=== PATIENT | female | born 1935 | race Caucasian/White ===

== ENCOUNTER 2017-01-22 19:21 | Emergency (ER) | payer MEDICARE ==
[~2017-01-22] VITALS: Ht 167.6 cm; Wt 105.0 kg
[2017-01-22 20:12] LABS: HEMATOCRIT 39.6 % (37.0-47.0); HEMOGLOBIN 12.9 g/dl (12.0-16.0); IMMATURE GRANULOCYTES 0.5 % (0.0-1.0); MEAN CORPUSCULAR HGB CONC 32.6 g/L CALC (32.0-36.0); NEUT# 8.31 thou/uL (2.00-7.15); RED BLOOD COUNT 4.45 mill/uL (4.20-5.60); RED CELL DISTRI WIDTH 14.9 % (11.5-15.5)
[2017-01-22 20:26] LABS: ALBUMIN 4.3 g/dL (3.2-5.0); BILIRUBIN, TOTAL 0.4 mg/dL (0.0-1.4); CALCIUM 9.8 mg/dL (8.4-10.2); CREATININE 1.6 mg/dL (0.5-1.0); TOTAL PROTEIN 7.9 g/dL (6.3-8.2)
[2017-01-22 20:32] LABS: POTASSIUM 5.2 mmol/l (3.5-5.1)
[2017-01-22 21:31] LABS: MYOGLOBIN 124 ng/mL (0 - 62)
[2017-01-22] MEDS ORDERED: LANTUS100 UNIT/M SC (22:59)
[2017-01-22] MEDS ORDERED: LEVOTHYROXIN50 MC1 PO (23:00)
[2017-01-22] MEDS ORDERED: ATORVASTATIN CA20 MG PO (23:02)
[2017-01-22] MEDS ORDERED: QUINAPRIL HCL40 MG PO (23:03)
[2017-01-22] MEDS ORDERED: CLOPIDOGREL75 MG PO (23:03)
[2017-01-22] MEDS ORDERED: AMLODIPINE BESYL5 MG PO (23:04)
[2017-01-22] MEDS ORDERED: ALLOPURINOL300 MG PO (23:04)
[2017-01-22 23:14] VITALS: BP 180/75
== END 2017-01-22 23:14 | disposition home or self-care (01) ==
LOC: ED 19:21
PROVIDERS: Emergency Medicine
DX: E11.65 Type 2 diabetes mellitus with hyperglycemia (principal); I10 Essential (primary) hypertension; Z79.4 Long term (current) use of insulin; R94.31 Abnormal electrocardiogram [ECG] [EKG]

== ENCOUNTER 2017-08-30 10:11 | Emergency (ER) | payer MEDICARE ==
[~2017-08-30] VITALS: Ht 167.6 cm; Wt 102.0 kg
[~2017-08-30 10:11] MED LIST: ALLOPURINOL300 MG PO; AMLODIPINE BESYL5 MG PO; ATORVASTATIN CA20 MG PO; CLOPIDOGREL75 MG PO; LANTUS100 UNIT/M SC; LEVOTHYROXIN50 MC1 PO; QUINAPRIL HCL40 MG PO
[2017-08-30 11:31] LABS: HEMATOCRIT 38.4 % (37.0-47.0); IMMATURE GRANULOCYTES 0.3 % (0.0-1.0); MEAN CELL VOLUME 90.8 fL CALC (80.0-100.0); MEAN CORPUSCULAR HGB 28.4 pG CALC (26.0-32.0); MEAN CORPUSCULAR HGB CONC 31.3 g/L CALC (32.0-36.0); NEUT# 4.8 thou/uL (2.00-7.15); RED BLOOD COUNT 4.23 mill/uL (4.20-5.60); RED CELL DISTRI WIDTH 15.5 % (11.5-15.5)
[2017-08-30 11:53] LABS: ALBUMIN 3.5 g/dL (3.2-5.0); ALKALINE PHOSPHATASE 97 u/l (38-126); AMYLASE 48 u/l (30-110); ANION GAP 15 (6-22 (CALC)); BILIRUBIN, TOTAL 0.4 mg/dL (0.0-1.4); BUN 37 mg/dL (8-23); BUN/CREATININE RATIO 19 (12-20 (CALC)); CARBON DIOXIDE 25 mmol/l (22-30); CHLORIDE 109 mmol/l (95-108); CREATININE 1.9 mg/dL (0.5-1.0); GFR 25 ML/MIN (>=60 (CALC)); GFR FOR AFR.AMER. 31 ML/MIN (>=60 (CALC)); LIPASE 61 u/l (23-300); POTASSIUM 4.4 mmol/l (3.5-5.1); SGOT/AST 20 u/l (9-36); SGPT/ALT 20 u/l (11-66); TOTAL PROTEIN 6.6 g/dL (6.3-8.2)
[2017-08-30 11:56] LABS: SODIUM 145 mmol/l (137-146)
[2017-08-30 12:05] LABS: MYOGLOBIN 122 ng/mL (0 - 62)
[2017-08-30] MEDS ORDERED: LOMOTIL2.5 MG PO (13:22)
[2017-08-30] MEDS ORDERED: ZOFRAN ODT4 MG PO (13:22)
[2017-08-30 13:27] VITALS: BP 155/68
== END 2017-08-30 14:50 | disposition home or self-care (01) ==
LOC: ED 10:11
PROVIDERS: Emergency Medicine
DX: K52.9 Noninfective gastroenteritis and colitis, unspecified (principal); K80.80 Other cholelithiasis without obstruction; E11.9 Type 2 diabetes mellitus without complications; I10 Essential (primary) hypertension

== ENCOUNTER 2020-05-01 14:17 | Inpatient (IN) | payer MEDICARE ==
[~2020-05-01] VITALS: Ht 167.6 cm; Wt 84.4 kg
[~2020-05-01 14:17] MED LIST changes: +LOMOTIL2.5 MG PO; +ZOFRAN ODT4 MG PO
--- NOTE | 2020-05-01 14:17 | NUR ---
HELPED WITH GETTING FAMILY OUT OF VEHICLE TO WHEELCHAIR. PATIENT UNABLE TO LIFT RIGHT LEG AND DRAGS IT TRYING TO AMBULATE. BROUGHT PATIENT TO ROOM FOR BEDSIDE TRIAGE. PATIENT HAS DRIFT TO UPPER AND LOWER RIGHT EXTREMITIES. PATIENT IS MILDLY ASPHASIC PRESSURED SPEECH AND HAS RIGHT UPPER EXTREMITY ATAXIA. PATIENT DENIES ANY PAIN OR RECENT FALL AT THIS TIME. PATIENTS FAMILY STATES LWK 1 WEEK PRIOR FAMILY UNKNOWN IF SUDDEN ONSET OR NOT. MD AT BEDSIDE
[2020-05-01 15:04] LABS: IMMATURE GRANULOCYTES 0.7 % (0.0-5.0); MEAN CORPUSCULAR HGB CONC 28.9 g/dL CAL (32.0-36.0); NEUT# 10.49 thou/uL (2.00-7.15); RED BLOOD COUNT 3.31 mill/uL (4.20-5.60); RED CELL DISTRI WIDTH 17.9 % (11.5-15.5)
[2020-05-01 15:06] LABS: HEMATOCRIT 26.3 % (37.0-47.0); HEMOGLOBIN 7.6 g/dl (12.0-16.0); MEAN CELL VOLUME 79.5 fL CALC (80.0-100.0)
--- NOTE | 2020-05-01 15:15 | NUR ---
PATIENT RESTING AWAITING LAB AND RADIOLOGY STUDIES PATIENT DENIES ANY PAIN AT THIS TIME
[2020-05-01 15:17] LABS: ALBUMIN 3.4 g/dL (3.2-5.0); ALKALINE PHOSPHATASE 78 u/l (38-126); AMYLASE 55 u/l (30-110); BILIRUBIN, TOTAL 0.3 mg/dL (0.0-1.4); BUN 48 mg/dL (8-23); BUN/CREATININE RATIO 17 (12-20 (CALC)); CARBON DIOXIDE 29 mmol/l (22-30); CHLORIDE 98 mmol/l (95-108); CREATININE 2.8 mg/dL (0.5-1.0); GFR 16 ML/MIN (>=60 (CALC)); GFR FOR AFR.AMER. 19 ML/MIN (>=60 (CALC)); LIPASE 69 u/l (23-300); MAGNESIUM 1.1 mg/dL (1.6-2.3); POTASSIUM 3.9 mmol/l (3.5-5.1); SGOT/AST 18 u/l (9-36)
[2020-05-01 15:20] LABS: ANION GAP 12 (6-22 (CALC)); SODIUM 135 mmol/l (137-146)
[2020-05-01 15:29] LABS: ACT PARTIAL THROMBO TIME 20.2 SECONDS (20.0-32.5); PROTHROMBIN TIME 10.4 SECONDS (9.0-12.5)
[2020-05-01] MEDS ORDERED: CHLORTHALID50 MG PO (15:40)
[2020-05-01] MEDS ORDERED: ASPIRIN81 MG PO (15:40)
[2020-05-01] MEDS ORDERED: PROTONIX40 M2 PO (15:42)
[2020-05-01] MEDS ORDERED: BASAGLAR K100 UNIT/M SC (15:43)
[2020-05-01 15:47] LABS: TSH, 3RD GENERATION 2.31 uIU/mL (0.47 - 4.68)
--- NOTE | 2020-05-01 16:17 | NUR ---
PATIENT RESTING AWAITING LAB AND RADIOLOGY STUDIES. PATIENT DENIES ANY PAIN AT THIS TIME
--- NOTE | 2020-05-01 16:33 | NUR ---
SPEECH THERAPY AT BEDSIDE AND SWALLOW EVAL COMPLETED. PATIENT PASSED SWALLOW EVAL OK TO FEED REGULAR DIET PATIENT JUST PREFERS SOFT
--- NOTE | 2020-05-01 16:53 | NUR ---
Speech therapy screen completed in ED. The pt presented with distorted speech, reduced cognitive status, impaired auditory comprehension, and decreased oral intake over the last week. Lissette tolerated cup sips of thin liquid via straw without signs or symptoms of aspiration or penetration. She presented with a strong voluntary cough with no reflexive cough observed. Diet recommendation based on screen includes thin liquids and a regular diet, however the pt stated she prefers mechanical soft foods and soup. The pt is able to tolerate a regular diet, but meals should be presented at a preferred consistency for comfort. Upon admission complete cognitive, language, and dysphagia evaluation. AMPAC score at time of ST screen- 12.
--- NOTE | 2020-05-01 17:00 | NUR ---
ASSISTED MD WITH RECTAL EXAM. POSITIVE FOR OCCULT BLOOD , LARGE AMOUNT SOFT BLACK STOOL IN RECTUM. OBTAINED CLOUDY STRAW COLORED URINE BY STRAIGHT CATH
[2020-05-01 17:09] LABS: URINE BILIRUBIN - DIPSTICK NEGATIVE (NEGATIVE); URINE BLOOD DIPSTICK TRACE-LYSED (NEGATIVE); URINE COLOR YELLOW; URINE GLUCOSE - DIPSTICK NEGATIVE (NEGATIVE); URINE KETONE NEGATIVE (NEGATIVE); URINE NITRITE - DIPSTICK NEGATIVE (Negative); URINE SPECIFIC GRAVITY 1.025; URINE UROBILINOGEN - DIPSTICK 0.2 E.U./dL (0.2)
[2020-05-01 17:12] LABS: URINE LEUK ESTERASE TRACE (NEGATIVE); URINE PROTEIN - DIPSTICK Trace mg/dL (NEG-TRACE)
[2020-05-01] MEDS ORDERED: (None)1 % OU (17:25)
--- NOTE | 2020-05-01 17:55 | NUR ---
BLOOD PRODUCT NOT READY AT THIS TIME. ADVISED ICU NURSE OF SAME. EDP AWARE
--- NOTE | 2020-05-01 18:05 | NUR ---
TRANSPORTED TO ICU VIA STRETCHER IN [facility]
--- NOTE | 2020-05-01 18:11 | NUR ---
PT ARRIVED TO ICU 2, BLOOD HAS BEEN ORDERED BUT IS NOT READY AT THIS TIME
--- NOTE | 2020-05-01 19:45 | NUR ---
RESTING IN BED ON ROUNDS. AWAKE, ALERT, ORIENTED X3. SPEECH IS SLIGHTLY HESITANT, ALTHOUGH ANSWERS QUESTIONS APPROPRIATELY. FACE SYMMETRICAL,TONGUE MIDLINE ON EXTENSION. FOLLOWS COMMANDS, MOVES ALL EXTREMITIES. HG/PP EQUAL WITH MODERATE STRENGTH. RESP NON-LABORED. LUNGS CLEAR. IV IN LAC, SITE BENIGN, NS INFUSING AT 75 ML/HR. SHIFT ASSESSMENT COMPLETED. DISCUSSED PLAN OF CARE. EXPLAINED LOW HG AND NEED FOR BLOOD TRANSFUSION. PATIENT VERBALIZES UNDERSTANDING OF TEACHING. CALL RIVERO IN REACH.
[2020-05-01 20:40] VITALS: BP 92/48
--- NOTE | 2020-05-01 20:45 | NUR ---
EXPLAINED PROCESS FOR BLOOD TRANSFUSION. CONSENT FOR TRANSFUSION OBTAINED.
--- NOTE | 2020-05-01 21:31 | NUR ---
NS INFUSING AT KVO FOR BLOOD TRANSFUSION. PRE-TRANSFUSION VSS. AFEBRILE. REINFORCED S/S OF TRANSFUSION REACTION. PRBC'S STARTED. SEE TAR FOR FURTHER INFORMATION.
[2020-05-01 21:45] VITALS: BP 124/55
--- NOTE | 2020-05-01 21:45 | NUR ---
NO S/S OF TRANSFUSION REACTION. VSS.
[2020-05-01 22:30] VITALS: BP 127/60
--- NOTE | 2020-05-01 22:30 | NUR ---
TOLERATING TRANSFUSION WELL. VSS.
[2020-05-01 23:30] VITALS: BP 139/60
[2020-05-02] VITALS (11 sets, daily range): BP systolic 113–164; BP diastolic 53–85
--- NOTE | 2020-05-02 | NUR ---
PATIENT RESTING WITH EYES CLOSED. PRBC'S INFUSING WITHOUT INCIDENT.
--- NOTE | 2020-05-02 00:15 | NUR ---
PRBC'S INFUSED WITHOUT INCIDENT. NS RESUMED AT 75 ML/HR.
--- NOTE | 2020-05-02 02:00 | NUR ---
RESTING WITH EYES CLOSED. AWAKENS EASILY TO NAME. NO CHANGES TO RPEORT.
--- NOTE | 2020-05-02 04:00 | NUR ---
ASLEEP. RESP NON-LABORED. VSS.
[2020-05-02 05:28] LABS: HEMATOCRIT 30.1 % (37.0-47.0); HEMOGLOBIN 9.1 g/dl (12.0-16.0); IMMATURE GRANULOCYTES 0.4 % (0.0-5.0); MEAN CELL VOLUME 80.5 fL CALC (80.0-100.0); MEAN CORPUSCULAR HGB 24.3 pG CALC (26.0-32.0); MEAN CORPUSCULAR HGB CONC 30.2 g/dL CAL (32.0-36.0); NEUT# 8.48 thou/uL (2.00-7.15); RED BLOOD COUNT 3.74 mill/uL (4.20-5.60); RED CELL DISTRI WIDTH 17.2 % (11.5-15.5)
[2020-05-02 05:55] LABS: ALBUMIN 2.9 g/dL (3.2-5.0); CREATININE 2.5 mg/dL (0.5-1.0); TOTAL PROTEIN 6.2 g/dL (6.3-8.2)
[2020-05-02 05:58] LABS: BILIRUBIN, TOTAL 0.6 mg/dL (0.0-1.4)
--- NOTE | 2020-05-02 06:00 | NUR ---
AWAKENS TO NAME. NO NEURO CHANGES TO REPORT. IV INFUSING WITHOUT INCIDENT.
--- NOTE | 2020-05-02 08:07 | NUR ---
Patient would benefit from PT/OT/ST consults
--- NOTE | 2020-05-02 08:30 | NUR ---
DR. RODGERS IN TO SEE PT; PLAN OF CARE DISCUSSED
--- NOTE | 2020-05-02 11:31 | NUR ---
PHYSICAL THERAPY IN WITH PT; PT ASSISTED TO RECLINER; FAMILY IN TO SEE PT; WILL CONTINUE TO MONITOR
--- NOTE | 2020-05-02 11:48 | NUR ---
SPEECH THERAPIST IN TO SEE PT
--- NOTE | 2020-05-02 13:01 | NUR ---
Vale. ATTEMPTED TO EVALUATE PATIENT AT 11:45 A.M., HOWEVER, WAS BEING EVALUATED BY Darron.
--- NOTE | 2020-05-02 14:32 | NUR ---
JENNIFER STARTED AT THIS TIME; DISCUSSED POC WITH PT. SHE IS AGREEABLE TO PLAN.
--- NOTE | 2020-05-02 14:57 | NUR ---
OT IN WITH PT.
--- NOTE | 2020-05-02 18:24 | NUR ---
PT ASSISTED TO BSC; VOIDS WITHOUT DIFFICULTY; NO COMPLAINTS VOICED; CALL RIVERO WITHIN REACH; WILL CONTINUE TO MONITOR.
--- NOTE | 2020-05-02 19:00 | NUR ---
RECEIVED REPORT FROM AM NURSE. PATIENT CURRENTLY IN CHAIR. PATIENT WITH NO SIGNS OF PAIN OR DISCOMFORT. PATIENT VITALS STABLE. WILL CONTINUE TO MONITOR.
--- NOTE | 2020-05-02 20:00 | NUR ---
patient rounded on. assessment completed. patient alert and oriented to person and place only. patient sitting in chair. no complaints of pain. patient with fluids infusing. patient with peripheral iv. vitals stable. patient encouraged to drink bowel prep. no bm yet. afebrile. will continue to monitor.
--- NOTE | 2020-05-02 20:45 | NUR ---
verbal consent obtained from daughter cal aguilar via telephone. send nurse witness. all questions answered. will continue to monitor.
--- NOTE | 2020-05-02 22:00 | NUR ---
PATIENT ROUNDED ON. PATIENT WITH NO SIGNS OF PAIN OR DISCOMFORT. VITAL SIGNS STABLE. PATIENT ASSISTED TO BEDSIDE COMMODE. PATIENT WITH NO BM. WILL CONTINUE TO MONITOR.
[2020-05-03] VITALS (9 sets, daily range): BP systolic 142–191; BP diastolic 57–90
--- NOTE | 2020-05-03 | NUR ---
PATIENT RESTING IN BED. PATIENT WITH NO COMPLAINTS OF PAIN OR DISCOMFORT. PATIENT WITH NO SIGNS OF DISTRESS. PATIENT AMBULATED TO BESIDE COMMODE. WILL CONTINUE TO MONITOR.
--- NOTE | 2020-05-03 02:00 | NUR ---
PATIENT INCONTINENT OF BOWEL MOVEMENT. STOOL LIQUID WITH SOME FORMED STOOL AND DARK IN COLOR. PATIENT WITH NO SIGNS OF DISTRESS. PATIENT ASSISTED TO BSC. WILL CONTINUE TO MONITOR.
--- NOTE | 2020-05-03 04:00 | NUR ---
PATIENT HAD ANOTHER EPISODE OF INCONTINENT STOOL. STOOL STILL LIQUID AND DARK. PATIENT WITH NO COMPLAINTS. PATIENT ASSISTED TO BSC. PATIENT CLEANED AND WASHED UP. LINENS CHANGED. VITALS STABLE. WILL CONTINUE TO MONITOR.
[2020-05-03 06:24] LABS: HEMATOCRIT 30.1 % (37.0-47.0); HEMOGLOBIN 9.1 g/dl (12.0-16.0); IMMATURE GRANULOCYTES 0.6 % (0.0-5.0); MEAN CELL VOLUME 81.1 fL CALC (80.0-100.0); MEAN CORPUSCULAR HGB 24.5 pG CALC (26.0-32.0); MEAN CORPUSCULAR HGB CONC 30.2 g/dL CAL (32.0-36.0); NEUT# 8.12 thou/uL (2.00-7.15); RED BLOOD COUNT 3.71 mill/uL (4.20-5.60); RED CELL DISTRI WIDTH 17.8 % (11.5-15.5)
[2020-05-03 06:41] LABS: ALBUMIN 2.9 g/dL (3.2-5.0); BILIRUBIN, TOTAL 0.4 mg/dL (0.0-1.4); CREATININE 2.3 mg/dL (0.5-1.0); POTASSIUM 4.5 mmol/l (3.5-5.1)
--- NOTE | 2020-05-03 07:00 | NUR ---
PT SLEEPING IN BED. NO DISTRESS NOTED. RESP EVEN AND UNLABORED. CONTINUE TO MONITOR.
--- NOTE | 2020-05-03 08:39 | NUR ---
PT LAYING IN BED. A&O TO SELF, PT REPOTS TO BE AT "HOME" AND YEAR STATED TO BE "1989". REORIENTED PT TO PLACE AND CURRENT TIME. BILATERAL SCD'S IN PLACE. PT DENIES ANY PAIN AT THIS TIME. PALE APPEARANCE NOTED. PT REPORTS WEAKNESS. SONYA CARE PROVIDED. BILATERAL DRESSINGS IN PLACE FOR WOUNDS, SEE CHART FOR PHOTO. ASSESSMENT COMPLETED. DISCUSSED POC, REINFORCEMENT NEEDED. CALL LIGHT IN REACH. CONTINUE TO MONITOR.
--- NOTE | 2020-05-03 10:24 | NUR ---
SONYA CARE PROVIDED WITH THE ASSISTANCE OF SHIRA HAWLEY.
--- NOTE | 2020-05-03 11:42 | NUR ---
SPEECH THERAPY AT BEDSIDE
--- NOTE | 2020-05-03 11:55 | NUR ---
BEDSIDE SWALLOW EVAL TO BE COMPLETED BY SPEECH THERAPY PER DR RODGERS
--- NOTE | 2020-05-03 12:25 | NUR ---
Cem GERARD AT BEDSIDE DISCUSSING POC
--- NOTE | 2020-05-03 12:59 | NUR ---
PT EATING LUNCH WITH DAUGHTER AT BEDSIDE. PT C/O OF BACK PAIN 01/11. CALL LIGHT IN REACH. CONTINUE TO MONITOR.
--- NOTE | 2020-05-03 13:13 | NUR ---
Cogntive-Communication therapy was provided earlier today. Patient was noted with soft voice. Family reports that her speech is the same as it was before, and they think it sounds softer due to patient's weakness. Family reports recent increased confusion. Patient was oriented to herself and location. Decreased orientation to temporal concepts, however when DYER AND WASHER cued her by saying yesterday was , she was able to state today is Wednesday and when DYER AND WASHER told her today's date is , patient was able to say tomorrow is . She was able to count to 10 forward and backward. She was able to count backwards from 20 - 1, but she was unable to skip count backwards from 20. She was able to skip count from 2 -20 by 2's forward. DYER AND WASHER provided education on memory startegies, and the above discussed working memory/attention tasks were provided during intervals of delayed recall memory tasks. Patient was able to accurately recall 3 novel unrelated words during 2 opportunities during delayed recall memory task, and she was able to accurately recall 2 out of 3 words 2 times and 1 out of 3 words 2 times. She was able to demonstrate ability to accurately perform digit reversal memory task for 2 digits, but was unable to perform digit reversal task for a series of 3 digits. [facility] Applied Cognitive approximately 7 - 8
--- NOTE | 2020-05-03 13:44 | NUR ---
PT SEEN AND EVALUATED BY SPEECH THERAPY. NO DIETARY RESTRICTIONS OR RECOMMENDATIONS AT THIS TIME.
--- NOTE | 2020-05-03 14:18 | NUR ---
ASSISTED PT TO BSC WITH THE ASSISTANCE OF SHIRA HAWLEY. PERICARE PROVIDED. DAUGHTER AT BEDSIDE. CONTINUE TO MONITOR.
--- NOTE | 2020-05-03 14:54 | NUR ---
DR RODGESR NOTIFIED OF PTS HIGH BP, 180/76. ORDERS REC FOR NORVASC 5 MG PO DAILY WITH FIRST DOSE NOW AND HYDRALAZINE 10 MG IV Q6 FOR SYSTOLIC GREATER THAN 170. ORDERS WRITTEN AND FAXED TO PHARMACY.
--- NOTE | 2020-05-03 15:06 | NUR ---
PT ARRIVED TO [facility] ROOM 269 VIA BED ACCOMPAINED BY JUAN, RN AND KERLINERN. BEDSIDE REPORT RECIEVED. INTRODUCED SELF TO PT AND DISCUSSED POC. PT IS A/O X2. ASSESSMENT AND VITALS OBTAINED. BP 161/57, HR 81, O2 95% ON ROOM AIR. RESPIRATIONS ARE EVEN AND UNLABORED WITH NO SIGNS OF DISTRESS NOTED. LUNG SOUNDS ARE CLEAR. HEART RHYTHM IS NORMAL WITH TELE IN PLACE. BOWEL SOUNDS ARE ACTIVE IN ALL QUADRANTS, LAST REPORTED BM 05/03/2020. RADIAL AND PEDAL PULSES ARE STRONG WITH NORMAL CAPILLARY REFILL. #20G IN LAC RUNNING WITH IVF PER ORDER, SITE APPEARS HEALTHY AND PATENT. PT PRESENT WITH VERY SMALL WOUND ON SACTRUM,OPEN TO AIR. WOUNDS PRESENT ON BILATERAL LEGS, DRESSINGS REMAINS CDI AT THIS TIME. PT DENIES ANY PAIN OR DISCOMFORTS AT THIS TIME. ALL SAFETY PRECAUTIONS ARE IN PLACE WITH CALL LIGHT IN REACH WITH BED ALARM ACTIVATED
--- NOTE | 2020-05-03 15:20 | NUR ---
BEDSIDE REPORT GIVEN TO SANJANA BARRAZA TO RESUME CARE. PT STABALZIED IN ROOM.
--- NOTE | 2020-05-03 15:33 | NUR ---
ORDER CLARIFICATION WRITEN FOR LABETOLOL 10 MG Q6 PRN FOR SYSTOLIC GREATER THAN 170
--- NOTE | 2020-05-03 16:11 | NUR ---
PT SLEEPING IN SEMI FOWLERS POSITION. RESPIRATIONS ARE EVEN AND UNLABORED WITH NO SIGNS OF DISTRESS NOTED. ALL SAFETY PRECAUTIONS ARE IN PLACE WITH CALL LILGHT IN PLACE AND BED ALARM ACTIVATED. WILL CONTINUE TO MONITOR
--- NOTE | 2020-05-03 19:42 | NUR ---
ORDERS RECIEVED. AWAITING FOR PHARMACY APPROVAL. PT DENIES ANY PAIN OR DISCOMFORTS AT THSI TIME. ALL SAFETY PRECAUTIONS REMAINS IN PLACE. WILL CONTINUE TO MONITOR
--- NOTE | 2020-05-03 20:00 | NUR ---
RECEIVED REPORT FROM RAMONITA CASTILLO AAO X 2 CURRENTLY LAYING IN BED WITH HOB SLIGHTLY ELEVATED. PT IS A 2 PERSON ASSIST. OBTAINED HEAD TO TOE ASSESSMENT & VS: T97.2 HR 79 RR 20 BP 142/61 O2 98% ON ROOMAIR. RESP RATE IS REGULAR & NON-LABORED. BILAT LUNGS SOUNDS CLEAR THROUGHOUT ALL LOBES. TELE IN PLACE-HEART SOUNDS S1 & S2 DISTINCT, NO EXTRA SOUNDS AUSCULTED. TELE IN PLACE- SHOWING SR. ABD SOFT & ROUND, BS ACTIVE X 4 QUADS LBM 05/03/2020. # 20 G IV IN LAC W/ NS @ 75ML/HR, SITE IS PATENT, CLEAN, DRY, AND INTACT, NO REDNESS, TENDERNESS, OR SWELLING NOTED. PERIPHERAL PULSES ARE PRESENT, EQUAL, AND STRONG. CAP REFILLS < 3 SEC. SKIN IS PINK, WARM, DRY WITH IMMEDIATE SKIN TURGOR, NO EDEMA NOTED, NON-INTACT- VERY SMALL WOUND ON SACTRUM, OPEN TO AIR. WOUNDS PRESENT ON BILAT LEGS, GUAZE WRAPPED DRESSINGS INPLACE AND CURRENTLY CLEAN, DRY, AND INTACT. PT DENIES PAIN AT THIS TIME. NO S/SX OF DISCOMFORT/ DISTRESS NOTED AT THIS TIME. SAFETY PRECAUTIONS IN PLACE: NON-SLIP FOOTWEAR, BED IN LOWEST POSITION W/ WHEELS LOCKED, SIDE RAILS UP X 2, AND CALL LIGHT WITHIN REACH. WILL CONTINUE TO MONITOR.
[2020-05-04] VITALS (7 sets, daily range): BP systolic 125–167; BP diastolic 46–59
--- NOTE | 2020-05-04 00:05 | NUR ---
PATIENT REMAINS IN BED, RESTING, NO S/SX OF DISTRESS OR DISCOMFORT OBSERVED AT THIS TIME, WILL CONTINUE TO MONITOR.
[2020-05-04 04:42] LABS: HEMATOCRIT 29.1 % (37.0-47.0); HEMOGLOBIN 8.7 g/dl (12.0-16.0); IMMATURE GRANULOCYTES 0.3 % (0.0-5.0); MEAN CELL VOLUME 81.3 fL CALC (80.0-100.0); MEAN CORPUSCULAR HGB 24.3 pG CALC (26.0-32.0); MEAN CORPUSCULAR HGB CONC 29.9 g/dL CAL (32.0-36.0); NEUT# 7.23 thou/uL (2.00-7.15); RED BLOOD COUNT 3.58 mill/uL (4.20-5.60)
[2020-05-04 05:03] LABS: CREATININE 2.2 mg/dL (0.5-1.0)
--- NOTE | 2020-05-04 05:09 | NUR ---
PATIENT REMAINS IN BED, RESTING, NO S/SX OF DISTRESS OR DISCOMFORT OBSERVED THIS TIME, WILL CONTINUE TO MONITOR.
--- NOTE | 2020-05-04 08:03 | NUR ---
PT IS SITTING IN THE CHAIR EATING HER BREAKFAST WITH NO S/S OF DISTRESS NOTED. PT IS A&O X2. PT DENIES PAIN AT THIS TIME. IVF INFUSING WELL. HERMES DRESSING IN LEGS CDI. PT DENIES ANY NEEDS AT THIS TIME. SAFETY PRECAUTIONS REINFORCED AND CALL LIGHT IN REACH.
--- NOTE | 2020-05-04 11:30 | NUR ---
PT IS RESTING IN HER LEFT SIDE WITH NO S/S OF DISTRESS NOTED. PT DENIES ANY PAIN AT THIS TIME. TELE IN PLACE. CALL LIGHT IN REACH.
--- NOTE | 2020-05-04 15:15 | NUR ---
HAD CHANGE PT HERMES DRESSING IN LEGS MILD DRANIAGE NOTED. ASSISSTED PT TO THE BSC. PT HAD A SMALL BM. SONYA CARE DONE. ASSISTED PT BACK TO BED. PO FLUIDS PROVIDED. PT DENIES ANY OTHER NEEDS AT THIS TIME. CALL LIGHT IN REACH.
--- NOTE | 2020-05-04 20:03 | NUR ---
ASSESSMENT AND VITALS COMPLETED AT THIS TIME. RESPIRATIONS ARE EVEN AND UNLABORED AT REST, NO SIGNS OF DISTRESS, O2 SAT 93% ON RA. HEART RHYTHM WAS HEARD NORMAL, RUNNING SR ON TELEMENTRY. BOWEL SOUNDS ARE ACTIVE IN ALL QUADRANTS. RADIAL AND PEDAL PULSES ARE WEAK WITH NORMAL CAPILLARY REFILL. PT IS USING THE BSC WITH 1 ASSIST. PT DENIES ANY PAIN OR ADDITIONAL NEEDS AT THIS TIME. ALL SAFETY PRECAUTIONS ARE IN PLACE WITH CALL LIGHT IN REACH. WILL CONTINUE TO MONITOR.
--- NOTE | 2020-05-05 00:03 | NUR ---
PT LAYING IN BED WITH EYES CLOSED, APPEARS TO BE SLEEPING, APPEARS COMFORTABLE AND IN NO DISTRESS. RESPIRATIONS REGULAR AND UNLABORED. ITEMS REMAIN WITHIN REACH, CALL RIVERO REMAINS WITHIN REACH. BED REMAINS LOCKED AND IN LOW POSITION WITH BEDRAILS UP X2. WILL CONTINUE TO MONITOR.
[2020-05-05 03:55] VITALS: BP 163/65
--- NOTE | 2020-05-05 04:03 | NUR ---
PT RESTING IN BED, NO SIGNS OF DISTRESS NOTED, RESP EVEN AND UNLABORED. PT VOICES NO NEEDS OR COMPLAINTS AT THIS TIME. CALL LIGHT IN REACH,CONTINUE TO MONITOR.
[2020-05-05 05:12] LABS: HEMATOCRIT 29.4 % (37.0-47.0); HEMOGLOBIN 8.7 g/dl (12.0-16.0); MEAN CELL VOLUME 81.7 fL CALC (80.0-100.0); MEAN CORPUSCULAR HGB 24.2 pG CALC (26.0-32.0); MEAN CORPUSCULAR HGB CONC 29.6 g/dL CAL (32.0-36.0); RED BLOOD COUNT 3.6 mill/uL (4.20-5.60); RED CELL DISTRI WIDTH 18.1 % (11.5-15.5)
[2020-05-05 05:30] LABS: ALBUMIN 2.6 g/dL (3.2-5.0); BILIRUBIN, TOTAL 0.3 mg/dL (0.0-1.4); CREATININE 2.1 mg/dL (0.5-1.0); POTASSIUM 3.9 mmol/l (3.5-5.1); TOTAL PROTEIN 5.7 g/dL (6.3-8.2)
[2020-05-05 07:59] VITALS: BP 132/62
--- NOTE | 2020-05-05 08:00 | NUR ---
PT IS SITTING IN THE RECLINER. PT IS A&O X2 BUT CONFUSED AT TIMES. BED ALARM IN PLACE. PT DENIES PAIN AT THIS TIME. IVF INFUISNG WELL. TELE IN PLACE. PT DENIES ANY NEEDS AT THIS TIME. CALL LIGHT IN REACH.
[2020-05-05 10:30] VITALS: BP 138/44
--- NOTE | 2020-05-05 12:23 | NUR ---
PT IS SITTING IN RECLINER EATING HER LUNCH WITH NO S/S OF DISTRESS NOTED. PT DENIES ANY NEEDS AT THIS TIME. CALL LIGHT IN REACH AND BED ALARM IN PLACE.
--- NOTE | 2020-05-05 15:00 | NUR ---
PT IS RESTING IN HER LEFT SIDE WITH NO S/S OF DISTRESS NOTED. PT DAUGHTER IN ROOM. DISCUSS POC WITH DAUGHTER. CALL LIGHT IN REACH.
[2020-05-05 15:10] VITALS: BP 140/65
[2020-05-05 20:00] VITALS: BP 149/59
--- NOTE | 2020-05-05 20:00 | NUR ---
PATIENT RESTING IN BED AT THIS TIME-AWAKE ALERT AND ORIENTED TO PERSON AND PLACE. TELE MONITOR IN PLACE. IVF NS PATENT AND INFUSING VIA RIGHT AC SITE AT 75CC/HR. SITE IS HEALTHY AT THIS TIME. PATIENT ASSISTED OOB TO BSC TO VOID 300CC OF CLEAR YELLOW URINE. ASSISTED WITH SONYA-CARE AND ASSISTED BACK TO BED. SAFETY PRECAUTIONS REINFORCED. BED ALARM IN PLACE FOR PATIENT SAFETY. CALL LIGHT IN REACH. WILL CONT TO MONITOR.
[2020-05-06] VITALS: BP 156/66
--- NOTE | 2020-05-06 00:29 | NUR ---
BED ALARM GOING OFF AND RESPONDED TO ROOM-PATIENT FOUND SITTING ON THE SIDE OF THE BED AND WANTS TO GO TO THE BSC TO VOID. PATIENT ASSISTED TO THE BSC AND VOIDED 200CC OF CLEAR YELLOW URINE. PATIENT TO PERSON AND PLACE BUT NOT TIME. SAFETY PRECAUTIONS REINFORCED. IVF PATENT AND INFUSING AT 75CC/HR VIA RIGHT AC SITE-REMAINS HEALTHY AT THIS TIME. TELE MONITOR IN PLACE. ASSISTED PATIENT BACK TO BED. CALL LIGHT IN REACH. BED ALARM BACK IN PLACE FOR PATIENT SAFETY. WILL CONT TO MONITOR.
[2020-05-06 04:00] VITALS: BP 165/70
[2020-05-06 04:47] LABS: HEMATOCRIT 28.6 % (37.0-47.0); HEMOGLOBIN 8.4 g/dl (12.0-16.0); MEAN CELL VOLUME 81.7 fL CALC (80.0-100.0); MEAN CORPUSCULAR HGB CONC 29.4 g/dL CAL (32.0-36.0); RED BLOOD COUNT 3.5 mill/uL (4.20-5.60); RED CELL DISTRI WIDTH 18.5 % (11.5-15.5)
[2020-05-06 05:06] LABS: CREATININE 1.9 mg/dL (0.5-1.0); MAGNESIUM 1.2 mg/dL (1.6-2.3); POTASSIUM 3.9 mmol/l (3.5-5.1)
[2020-05-06 07:00] VITALS: BP 162/82
--- NOTE | 2020-05-06 07:00 | NUR ---
PATIENT IN BED DENIES ANY PAIN AT THIS TIME CALL LIGHT NEAR. KITCHENHAND DONE AT THIS TIME. PATIENT HAS BILATERAL DRESSING ON LOWER LEGS. ALL SAFETY MEASURES ARE IN PLACE CALL LIGHT NEAR. SCD NOT ON DUE TO PATIENT REFUSING. PATIENT IS ALERT AND ORIENTED AT THIS TIME.
--- NOTE | 2020-05-06 08:16 | NUR ---
AT BEDSIDE DISCUSSING POC WITH PT.
[2020-05-06 10:30] VITALS: BP 151/48
[2020-05-06] MEDS ORDERED: AMLODIPINE BESYL5 MG PO (11:41)
--- NOTE | 2020-05-06 11:45 | NUR ---
PATIENT UP IN CHAIR AT THIS TIME DENIES ANY NEEDS CALL LIGHT WITHIN REACH CHAIR ALARM ON.
--- NOTE | 2020-05-06 12:17 | NUR ---
BAI[place] PATIENT DAUGHTER REPORTS THAT HERSELF AND PATIENT SPOUSE WOULD LIKE THE PATIENT TO GO TO REHAB. ZANE RUIZ AND CASE MANAGMENT NOTIFIED.
--- NOTE | 2020-05-06 13:51 | NUR ---
[facility] THERAPY AT BEDSIDE DISCUSSING POC.
--- NOTE | 2020-05-06 13:59 | NUR ---
PT.Note Miss Cohen was seated in chair as entered room. Miss Cohen agreed to participate in therapy session. Sit>stand (MIN A), static standing x 15 seconds, no loss of balance noted. Ambulated 5o ft w/ front wheeled walker x1 rest break. Verbal cues for correct hand positioning as she descends to a seated position. Change of directions (MIN A) no loss of balance noted. Call gallo and treay table by patient side as exited room. [facility] 6 score of 11
[2020-05-06 15:00] VITALS: BP 150/40
--- NOTE | 2020-05-06 16:22 | NUR ---
PATIENT SITTING UP IN CHAIR AT THIS TIME, CHAIR ALARM ON, DENIES ANY PAIN AT THIS TIME CALL LIGHT WITHIN REACH.
--- NOTE | 2020-05-06 17:56 | NUR ---
Discharge instructions given. Patient verbalizes understanding of same. Discharged in stable condition via Wheelchair to [facility] with *Other. All belongings sent with pt. PT LEFT AT THIS TIME FOR [facility] REHAB ACCOMPANIED BY REHAB STAFF MEMBER VIA WHEELCHAIR IN STABLE CONDITION. ALL BELONGINGS LEFT WITH PT AT THIS TIME.
--- NOTE | 2020-05-06 18:33 | NUR ---
REPORT CALLED TO NICHOLAS HAWLEY, [facility].
== END 2020-05-06 17:55 | DRG 812 ==
LOC: ED 14:17 → ED-I 17:19 → ED 17:28 → ICU 17:29 → MS2 05-03 15:06
PROVIDERS: Internal Medicine; Nurse Practitioner; Nurse Practitioner Family; ADMIT Internal Medicine; ATTEND Internal Medicine
PROC: 30233N1 Transfusion of Nonautologous Red Blood Cells into Peripheral Vein, Percutaneous Approach (ICD-10-PCS; principal; 2020-05-01)
DX: D64.9 Anemia, unspecified (principal); K80.00 Calculus of gallbladder with acute cholecystitis without obstruction; R19.5 Other fecal abnormalities; R41.0 Disorientation, unspecified; I10 Essential (primary) hypertension; E11.9 Type 2 diabetes mellitus without complications; Z79.4 Long term (current) use of insulin; Z79.82 Long term (current) use of aspirin; Z20.828 Contact with and (suspected) exposure to other viral communicable diseases
CPT/HCPCS: J3475; P9016; S0164

== ENCOUNTER 2020-05-28 10:33 | Emergency (ER) | payer MEDICARE ==
[~2020-05-28] VITALS: Ht 167.6 cm; Wt 89.4 kg
[~2020-05-28 10:33] MED LIST changes: +(None)1 % OU; +ASPIRIN81 MG PO; +BASAGLAR K100 UNIT/M SC; +CHLORTHALID50 MG PO; +PROTONIX40 M2 PO
[2020-05-28] MEDS ORDERED: OMNICEF300 MG PO (10:53)
[2020-05-28] MEDS ORDERED: ATORVASTATIN CA40 MG PO (10:54)
[2020-05-28] MEDS ORDERED: BASAGLAR K100 UNIT/M SC (10:55)
[2020-05-28] MEDS ORDERED: PLAVIX75 MG PO (10:55)
[2020-05-28 11:18] LABS: HEMATOCRIT 26.1 % (37.0-47.0); HEMOGLOBIN 7.7 g/dl (12.0-16.0); IMMATURE GRANULOCYTES 0.8 % (0.0-5.0); MEAN CELL VOLUME 85.6 fL CALC (80.0-100.0); MEAN CORPUSCULAR HGB 25.2 pG CALC (26.0-32.0); MEAN CORPUSCULAR HGB CONC 29.5 g/dL CAL (32.0-36.0); NEUT# 8.46 thou/uL (2.00-7.15); RED BLOOD COUNT 3.05 mill/uL (4.20-5.60); RED CELL DISTRI WIDTH 22.5 % (11.5-15.5)
[2020-05-28 11:42] LABS: D-DIMER 2.33 mg/L (0.19-0.60)
[2020-05-28 11:46] LABS: ALBUMIN 2.6 g/dL (3.2-5.0); BILIRUBIN, TOTAL 0.4 mg/dL (0.0-1.4); CREATININE 2.3 mg/dL (0.5-1.0); POTASSIUM 4.2 mmol/l (3.5-5.1); TOTAL PROTEIN 5.6 g/dL (6.3-8.2)
[2020-05-28 11:47] LABS: ACT PARTIAL THROMBO TIME 22.1 SECONDS (20.0-32.5); PROTHROMBIN TIME 10.4 SECONDS (9.0-12.5)
[2020-05-28 14:15] VITALS: BP 144/62
[2020-05-28 14:26] VITALS: BP 143/63
[2020-05-28 14:39] VITALS: BP 144/65
[2020-05-28 15:10] VITALS: BP 144/65
== END 2020-05-28 14:54 ==
LOC: ED 10:33
DX: J18.9 Pneumonia, unspecified organism (principal); D64.9 Anemia, unspecified; E11.9 Type 2 diabetes mellitus without complications; I10 Essential (primary) hypertension; I69.928 Other speech and language deficits following unspecified cerebrovascular disease; Z99.81 Dependence on supplemental oxygen; Z79.4 Long term (current) use of insulin; Z20.828 Contact with and (suspected) exposure to other viral communicable diseases
CPT/HCPCS: A9540; P9016